=== PATIENT | female | born 1990 | race Two or more races ===

== ENCOUNTER 2024-12-05 17:12 | Emergency (ER) | payer SELFPAY ==
[~2024-12-05] VITALS: Ht 167.6 cm; Wt 104.3 kg
[2024-12-05 17:12] VITALS: TEMP 98.3
[2024-12-05 19:36] LABS: PREGNANCY TEST URINE QUAL NEGATIVE (NEGATIVE)
[2024-12-05] MEDS ORDERED: dexaMETHasone SOD PHOSPHATE 1 ML ONE (21:12)
[2024-12-05] MEDS ORDERED: KETOROLAC TROMETHAMINE INJ 30 MG/ML VIAL ONE (21:13)
[2024-12-05] MEDS ORDERED: PROCHLORPERAZINE EDISYLATE 10 MG/2 ML VIAL ONE (21:13)
[2024-12-05] MEDS: dexaMETHasone SOD PHOSPHATE 10 MG/ML VIAL IV ONE (21:20)
[2024-12-05] MEDS: KETOROLAC TROMETHAMINE INJ 30 MG/ML VIAL IV ONE (21:21)
[2024-12-05] MEDS: PROCHLORPERAZINE EDISYLATE 10 MG/2 ML VIAL IVP ONE (21:25)
[2024-12-06 05:39] VITALS: BP 122/72; O2SAT 98
== END 2024-12-06 05:39 | disposition home or self-care (01) ==
LOC: ER 17:14
DX: S00.03XA Contusion of scalp, initial encounter (principal); R45.1 Restlessness and agitation; E11.9 Type 2 diabetes mellitus without complications; I10 Essential (primary) hypertension; W22.8XXA Striking against or struck by other objects, initial encounter; Y93.89 Activity, other specified; Y92.89 Other specified places as the place of occurrence of the external cause; Y99.8 Other external cause status
CPT/HCPCS: 70450; 81025; 84703; 96374; 96375; 99285; J0780; J1100; J1885